=== PATIENT | male | born 1935 | race Caucasian/White ===

== ENCOUNTER 2016-04-05 19:31 | Inpatient (IN) | payer MEDICARE ==
[~2016-04-05] VITALS: Ht 182.9 cm; Wt 96.6 kg
[2016-04-05] MEDS: ASPIRIN 81 MG CHEW TAB PO SCH (11:55)
[~2016-04-05 19:31] MED LIST: ACETAMINOPHEN 325 MG TAB PO PRN; CEFAZOLIN 2,000 MG in SODIUM CHLORIDE 0.9% 100 ML IV ONE; PNEUMO VAC 25 MCG/0.5 ML VL IM.VACC ONE
[2016-04-05 19:35] VITALS: BP_SYST 110; RESP 20; TEMP 98.5
[2016-04-05] MEDS ORDERED: TUBERCULIN PPD 5 UNIT SYR ID.VACC ONE (21:00)
[2016-04-05] MEDS: SILVER SULF 1% CR 50 GM TOPICAL SCH (22:09)
[2016-04-05] MEDS: SERTRALINE 50 MG TAB PO SCH (22:10)
[2016-04-05] MEDS: METOPROLOL XL 100 MG TAB PO SCH (22:10)
[2016-04-05] MEDS: PRAVASTATIN 40 MG TAB PO SCH (22:10)
[2016-04-06] MEDS: SODIUM CHLORIDE 0.9% FLUSH BAG 500 ML IV SCH (06:00)
[2016-04-06 06:02] VITALS: BP_SYST 126; RESP 20; TEMP 98.4
[2016-04-06] MEDS: PANTOPRAZOLE 40 MG TAB PO SCH (06:08)
[2016-04-06] MEDS: ASPIRIN 81 MG CHEW TAB PO SCH (09:31)
[2016-04-06] MEDS: Furosemide 20 MG TAB PO SCH (09:32)
[2016-04-06] MEDS: NICOTINE 14 MG/24 HR TDSY TRANSDERM SCH (09:32)
[2016-04-06] MEDS: METOPROLOL XL 100 MG TAB PO SCH ×2 (09:32→20:15)
[2016-04-06] MEDS: SILVER SULF 1% CR 50 GM TOPICAL SCH ×2 (09:33→23:25)
[2016-04-06 09:44] VITALS: BP_SYST 111; RESP 18; TEMP 97.9
[2016-04-06 10:55] VITALS: Ht 182.9 cm; Wt 96.6 kg
[2016-04-06 16:04] VITALS: BP_SYST 103; RESP 18; TEMP 97.3
[2016-04-06] MEDS: SERTRALINE 50 MG TAB PO SCH (20:15)
[2016-04-06] MEDS: PRAVASTATIN 40 MG TAB PO SCH (20:15)
[2016-04-07 00:11] VITALS: BP_SYST 121; RESP 18; TEMP 97.7
[2016-04-07] MEDS: SODIUM CHLORIDE 0.9% FLUSH BAG 500 ML IV SCH (06:00)
[2016-04-07] MEDS: PANTOPRAZOLE 40 MG TAB PO SCH (06:22)
[2016-04-07] MEDS: NICOTINE 14 MG/24 HR TDSY TRANSDERM SCH (08:29)
[2016-04-07] MEDS: Furosemide 20 MG TAB PO SCH (08:30)
[2016-04-07] MEDS: ASPIRIN 81 MG CHEW TAB PO SCH (08:30)
[2016-04-07] MEDS: METOPROLOL XL 100 MG TAB PO SCH ×2 (08:30→21:04)
[2016-04-07] MEDS: SILVER SULF 1% CR 50 GM TOPICAL SCH ×2 (11:16→21:05)
[2016-04-07] MEDS: CEFAZOLIN 1,000 MG in DEXTROSE 5% 50 ML IV SCH ×2 (11:16→15:55)
[2016-04-07 13:00] VITALS: BP_SYST 130; RESP 18; TEMP 97.4
[2016-04-07 15:55] VITALS: BP_SYST 120; RESP 18; TEMP 97.3
[2016-04-07] MEDS: SKIN TEST: READ AND RECORD XX SCH (21:00)
[2016-04-07] MEDS: PRAVASTATIN 40 MG TAB PO SCH (21:04)
[2016-04-07] MEDS: SERTRALINE 50 MG TAB PO SCH (21:05)
[2016-04-08] MEDS: CEFAZOLIN 1,000 MG in DEXTROSE 5% 50 ML IV SCH ×4 (00:44→23:56)
[2016-04-08 01:43] VITALS: BP_SYST 117; RESP 18; TEMP 98.3
[2016-04-08 01:44] VITALS: TEMP 98.3
[2016-04-08] MEDS: SODIUM CHLORIDE 0.9% FLUSH BAG 500 ML IV SCH (06:08)
[2016-04-08] MEDS: PANTOPRAZOLE 40 MG TAB PO SCH (06:08)
[2016-04-08] MEDS: METOPROLOL XL 100 MG TAB PO SCH ×2 (08:24→21:01)
[2016-04-08] MEDS: ASPIRIN 81 MG CHEW TAB PO SCH (08:24)
[2016-04-08] MEDS: Furosemide 20 MG TAB PO SCH (08:24)
[2016-04-08] MEDS: NICOTINE 14 MG/24 HR TDSY TRANSDERM SCH (08:25)
[2016-04-08] MEDS: SILVER SULF 1% CR 50 GM TOPICAL SCH ×2 (08:26→22:15)
[2016-04-08 10:56] VITALS: BP_SYST 112; RESP 18; TEMP 98.2
[2016-04-08 15:27] VITALS: BP_SYST 133; RESP 18; TEMP 98.1
[2016-04-08] MEDS: PRAVASTATIN 40 MG TAB PO SCH (21:01)
[2016-04-08] MEDS: SERTRALINE 50 MG TAB PO SCH (21:01)
[2016-04-09 00:09] VITALS: BP_SYST 111; RESP 18; TEMP 98.5
[2016-04-09] MEDS: SODIUM CHLORIDE 0.9% FLUSH BAG 500 ML IV SCH (06:01)
[2016-04-09] MEDS: PANTOPRAZOLE 40 MG TAB PO SCH (06:02)
[2016-04-09] MEDS: CEFAZOLIN 1,000 MG in DEXTROSE 5% 50 ML IV SCH ×2 (08:58→16:46)
[2016-04-09] MEDS: ASPIRIN 81 MG CHEW TAB PO SCH (09:55)
[2016-04-09] MEDS: Furosemide 20 MG TAB PO SCH (09:55)
[2016-04-09] MEDS: NICOTINE 14 MG/24 HR TDSY TRANSDERM SCH (09:56)
[2016-04-09] MEDS: METOPROLOL XL 100 MG TAB PO SCH ×2 (09:58→21:25)
[2016-04-09] MEDS: SILVER SULF 1% CR 50 GM TOPICAL SCH ×2 (09:58→21:26)
[2016-04-09 11:34] VITALS: BP_SYST 111; RESP 16; TEMP 98.9
[2016-04-09 16:37] VITALS: BP_SYST 114; RESP 18; TEMP 98.1
[2016-04-09] MEDS: MICONAZOLE 2% PWD TOPICAL SCH (21:25)
[2016-04-09] MEDS: SERTRALINE 50 MG TAB PO SCH (21:25)
[2016-04-09] MEDS: PRAVASTATIN 40 MG TAB PO SCH (21:25)
[2016-04-10] MEDS: CEFAZOLIN 1,000 MG in DEXTROSE 5% 50 ML IV SCH ×3 (00:20→16:33)
[2016-04-10 02:04] VITALS: BP_SYST 141; RESP 18; TEMP 98.2
[2016-04-10 02:05] VITALS: TEMP 98.2
[2016-04-10] MEDS: PANTOPRAZOLE 40 MG TAB PO SCH (06:14)
[2016-04-10] MEDS: SODIUM CHLORIDE 0.9% FLUSH BAG 500 ML IV SCH (06:15)
[2016-04-10] MEDS: Furosemide 20 MG TAB PO SCH (09:23)
[2016-04-10] MEDS: METOPROLOL XL 100 MG TAB PO SCH ×2 (09:23→20:42)
[2016-04-10] MEDS: ASPIRIN 81 MG CHEW TAB PO SCH (09:23)
[2016-04-10] MEDS: NICOTINE 14 MG/24 HR TDSY TRANSDERM SCH (09:24)
[2016-04-10] MEDS: SILVER SULF 1% CR 50 GM TOPICAL SCH ×2 (09:24→21:00)
[2016-04-10] MEDS: MICONAZOLE 2% PWD TOPICAL SCH ×2 (09:25→20:43)
[2016-04-10 11:17] VITALS: BP_SYST 129; RESP 18; TEMP 97.5
[2016-04-10 15:41] VITALS: BP_SYST 109; RESP 18; TEMP 97.3
[2016-04-10] MEDS: PRAVASTATIN 40 MG TAB PO SCH (20:41)
[2016-04-10] MEDS: SERTRALINE 50 MG TAB PO SCH (20:41)
[2016-04-11] MEDS: CEFAZOLIN 1,000 MG in DEXTROSE 5% 50 ML IV SCH ×3 (00:10→15:53)
[2016-04-11 01:13] VITALS: BP_SYST 110; RESP 18; TEMP 98.3
[2016-04-11] MEDS: SODIUM CHLORIDE 0.9% FLUSH BAG 500 ML IV SCH (06:28)
[2016-04-11] MEDS: PANTOPRAZOLE 40 MG TAB PO SCH (06:28)
[2016-04-11] MEDS: ASPIRIN 81 MG CHEW TAB PO SCH (08:50)
[2016-04-11] MEDS: METOPROLOL XL 100 MG TAB PO SCH ×2 (08:50→21:12)
[2016-04-11] MEDS: Furosemide 20 MG TAB PO SCH (08:51)
[2016-04-11] MEDS: MICONAZOLE 2% PWD TOPICAL SCH ×2 (08:51→21:13)
[2016-04-11] MEDS: SILVER SULF 1% CR 50 GM TOPICAL SCH (08:52)
[2016-04-11] MEDS: NICOTINE 14 MG/24 HR TDSY TRANSDERM SCH (08:54)
[2016-04-11 10:25] VITALS: BP_SYST 128; RESP 18; TEMP 97.7
[2016-04-11 16:30] VITALS: BP_SYST 129; RESP 18; TEMP 98
[2016-04-11] MEDS ORDERED: MISSING DOSE XX ONE (19:35)
[2016-04-11] MEDS: PRAVASTATIN 40 MG TAB PO SCH (21:12)
[2016-04-11] MEDS: SERTRALINE 50 MG TAB PO SCH (21:12)
[2016-04-12 00:08] VITALS: BP_SYST 107; RESP 18; TEMP 98.3
[2016-04-12] MEDS: CEFAZOLIN 1,000 MG in DEXTROSE 5% 50 ML IV SCH ×3 (00:09→17:21)
[2016-04-12] MEDS: SILVER SULF 1% CR 50 GM TOPICAL SCH ×3 (00:12→21:08)
[2016-04-12] MEDS: SODIUM CHLORIDE 0.9% FLUSH BAG 500 ML IV SCH (05:49)
[2016-04-12] MEDS: PANTOPRAZOLE 40 MG TAB PO SCH (05:53)
[2016-04-12 10:35] VITALS: BP_SYST 132; TEMP 97.8
[2016-04-12] MEDS: Furosemide 20 MG TAB PO SCH (10:55)
[2016-04-12] MEDS: ASPIRIN 81 MG CHEW TAB PO SCH (10:55)
[2016-04-12] MEDS: METOPROLOL XL 100 MG TAB PO SCH ×2 (10:56→21:07)
[2016-04-12] MEDS: MICONAZOLE 2% PWD TOPICAL SCH ×2 (10:56→21:08)
[2016-04-12] MEDS: NICOTINE 14 MG/24 HR TDSY TRANSDERM SCH (10:57)
[2016-04-12 16:51] VITALS: BP_SYST 121
[2016-04-12 16:52] VITALS: BP_SYST 121; RESP 18; TEMP 98
[2016-04-12] MEDS ORDERED: TUBERCULIN PPD 5 UNIT SYR ID.VACC ONE (21:00)
[2016-04-12] MEDS: APIXABAN 2.5 MG TAB PO SCH (21:07)
[2016-04-12] MEDS: PRAVASTATIN 40 MG TAB PO SCH (21:07)
[2016-04-12] MEDS: SERTRALINE 50 MG TAB PO SCH (21:08)
[2016-04-13] MEDS: CEFAZOLIN 1,000 MG in DEXTROSE 5% 50 ML IV SCH ×3 (00:16→18:13)
[2016-04-13 00:21] VITALS: BP_SYST 105; RESP 18; TEMP 98.5
[2016-04-13] MEDS: PANTOPRAZOLE 40 MG TAB PO SCH (06:22)
[2016-04-13] MEDS: SODIUM CHLORIDE 0.9% FLUSH BAG 500 ML IV SCH (06:22)
[2016-04-13] MEDS: Furosemide 20 MG TAB PO SCH (08:02)
[2016-04-13] MEDS: APIXABAN 2.5 MG TAB PO SCH ×2 (08:02→20:00)
[2016-04-13] MEDS: METOPROLOL XL 100 MG TAB PO SCH ×2 (08:02→20:01)
[2016-04-13] MEDS: ASPIRIN 81 MG CHEW TAB PO SCH (08:02)
[2016-04-13] MEDS: NICOTINE 14 MG/24 HR TDSY TRANSDERM SCH (08:03)
[2016-04-13] MEDS: SILVER SULF 1% CR 50 GM TOPICAL SCH ×2 (08:04→20:01)
[2016-04-13] MEDS: MICONAZOLE 2% PWD TOPICAL SCH ×2 (08:05→20:01)
[2016-04-13 11:14] VITALS: BP_SYST 102; RESP 20; TEMP 97.5
[2016-04-13 16:09] VITALS: BP_SYST 118; RESP 20; TEMP 97.8
[2016-04-13] MEDS: COLLAGENASE OINT 30 GM TOPICAL SCH (18:18)
[2016-04-13] MEDS: PRAVASTATIN 40 MG TAB PO SCH (20:00)
[2016-04-13] MEDS: SERTRALINE 50 MG TAB PO SCH (20:01)
[2016-04-14] MEDS: CEFAZOLIN 1,000 MG in DEXTROSE 5% 50 ML IV SCH ×3 (00:10→16:06)
[2016-04-14 00:14] VITALS: BP_SYST 112; RESP 18; TEMP 98
[2016-04-14] MEDS: SODIUM CHLORIDE 0.9% FLUSH BAG 500 ML IV SCH ×2 (06:24→09:08)
[2016-04-14] MEDS: PANTOPRAZOLE 40 MG TAB PO SCH (06:24)
[2016-04-14] MEDS: SILVER SULF 1% CR 50 GM TOPICAL SCH ×2 (09:00→09:06)
[2016-04-14] MEDS: APIXABAN 2.5 MG TAB PO SCH ×2 (09:01→21:11)
[2016-04-14] MEDS: METOPROLOL XL 100 MG TAB PO SCH ×2 (09:01→21:11)
[2016-04-14] MEDS: ASPIRIN 81 MG CHEW TAB PO SCH (09:02)
[2016-04-14] MEDS: Furosemide 20 MG TAB PO SCH (09:02)
[2016-04-14] MEDS: NICOTINE 14 MG/24 HR TDSY TRANSDERM SCH (09:03)
[2016-04-14] MEDS: COLLAGENASE OINT 30 GM TOPICAL SCH (09:07)
[2016-04-14] MEDS: MICONAZOLE 2% PWD TOPICAL SCH ×2 (09:07→21:11)
[2016-04-14 11:44] VITALS: BP_SYST 105; RESP 20; TEMP 98.2
[2016-04-14 17:16] VITALS: BP_SYST 117; TEMP 98.2
[2016-04-14] MEDS: PRAVASTATIN 40 MG TAB PO SCH (21:11)
[2016-04-14] MEDS: SERTRALINE 50 MG TAB PO SCH (21:11)
[2016-04-14] MEDS: SKIN TEST: READ AND RECORD XX SCH (21:12)
[2016-04-15] MEDS: CEFAZOLIN 1,000 MG in DEXTROSE 5% 50 ML IV SCH ×3 (00:48→15:38)
[2016-04-15 01:07] VITALS: BP_SYST 107; TEMP 98.4
[2016-04-15 01:08] VITALS: RESP 18
[2016-04-15] MEDS: PANTOPRAZOLE 40 MG TAB PO SCH (05:45)
[2016-04-15] MEDS: SILVER SULF 1% CR 50 GM TOPICAL SCH ×3 (05:47→20:57)
[2016-04-15] MEDS: METOPROLOL XL 100 MG TAB PO SCH ×2 (08:55→20:56)
[2016-04-15] MEDS: Furosemide 20 MG TAB PO SCH (08:55)
[2016-04-15] MEDS: APIXABAN 2.5 MG TAB PO SCH ×2 (08:55→20:56)
[2016-04-15] MEDS: ASPIRIN 81 MG CHEW TAB PO SCH (08:55)
[2016-04-15] MEDS: NICOTINE 14 MG/24 HR TDSY TRANSDERM SCH (08:56)
[2016-04-15] MEDS: MICONAZOLE 2% PWD TOPICAL SCH ×2 (08:57→20:56)
[2016-04-15 11:08] VITALS: BP_SYST 109; RESP 18; TEMP 98
[2016-04-15] MEDS ORDERED: MISSING DOSE XX ONE (14:40)
[2016-04-15] MEDS: COLLAGENASE OINT 30 GM TOPICAL SCH (15:37)
[2016-04-15 16:36] VITALS: BP_SYST 113; RESP 18; TEMP 98
[2016-04-15] MEDS: PRAVASTATIN 40 MG TAB PO SCH (20:56)
[2016-04-15] MEDS: SERTRALINE 50 MG TAB PO SCH (20:56)
[2016-04-16] MEDS: CEFAZOLIN 1,000 MG in DEXTROSE 5% 50 ML IV SCH ×3 (00:12→16:13)
[2016-04-16 00:20] VITALS: BP_SYST 101; RESP 18; TEMP 97.9
[2016-04-16] MEDS: SODIUM CHLORIDE 0.9% FLUSH BAG 500 ML IV SCH (06:22)
[2016-04-16] MEDS: PANTOPRAZOLE 40 MG TAB PO SCH (06:22)
[2016-04-16] MEDS: METOPROLOL XL 100 MG TAB PO SCH ×2 (08:43→20:28)
[2016-04-16] MEDS: ASPIRIN 81 MG CHEW TAB PO SCH (08:43)
[2016-04-16] MEDS: APIXABAN 2.5 MG TAB PO SCH ×2 (08:43→20:28)
[2016-04-16] MEDS: Furosemide 20 MG TAB PO SCH (08:43)
[2016-04-16] MEDS: COLLAGENASE OINT 30 GM TOPICAL SCH (08:44)
[2016-04-16] MEDS: SILVER SULF 1% CR 50 GM TOPICAL SCH ×2 (08:44→20:29)
[2016-04-16] MEDS: MICONAZOLE 2% PWD TOPICAL SCH ×2 (08:44→20:29)
[2016-04-16] MEDS: NICOTINE 14 MG/24 HR TDSY TRANSDERM SCH (08:45)
[2016-04-16 09:26] VITALS: BP_SYST 108; RESP 18; TEMP 98.3
[2016-04-16 15:27] VITALS: BP_SYST 110; RESP 18; TEMP 97.4
[2016-04-16] MEDS: SERTRALINE 50 MG TAB PO SCH (20:28)
[2016-04-16] MEDS: PRAVASTATIN 40 MG TAB PO SCH (20:28)
[2016-04-17] MEDS: CEFAZOLIN 1,000 MG in DEXTROSE 5% 50 ML IV SCH ×4 (00:07→23:37)
[2016-04-17 00:11] VITALS: BP_SYST 114; RESP 18; TEMP 98.2
[2016-04-17] MEDS: PANTOPRAZOLE 40 MG TAB PO SCH (06:23)
[2016-04-17] MEDS: SODIUM CHLORIDE 0.9% FLUSH BAG 500 ML IV SCH (06:23)
[2016-04-17] MEDS: COLLAGENASE OINT 30 GM TOPICAL SCH (09:55)
[2016-04-17] MEDS: APIXABAN 2.5 MG TAB PO SCH ×2 (09:55→21:27)
[2016-04-17] MEDS: SILVER SULF 1% CR 50 GM TOPICAL SCH ×2 (09:55→21:00)
[2016-04-17] MEDS: MICONAZOLE 2% PWD TOPICAL SCH ×2 (09:55→21:29)
[2016-04-17] MEDS: METOPROLOL XL 100 MG TAB PO SCH ×2 (09:56→21:27)
[2016-04-17] MEDS: ASPIRIN 81 MG CHEW TAB PO SCH (09:56)
[2016-04-17] MEDS: NICOTINE 14 MG/24 HR TDSY TRANSDERM SCH (09:56)
[2016-04-17] MEDS: Furosemide 20 MG TAB PO SCH (09:56)
[2016-04-17 10:11] VITALS: BP_SYST 111; RESP 18; TEMP 97.8
[2016-04-17 15:30] VITALS: BP_SYST 111; RESP 20; TEMP 97.9
[2016-04-17] MEDS ORDERED: MISSING DOSE XX ONE (19:50)
[2016-04-17] MEDS: SERTRALINE 50 MG TAB PO SCH (21:27)
[2016-04-17] MEDS: PRAVASTATIN 40 MG TAB PO SCH (21:27)
[2016-04-18 02:41] VITALS: BP_SYST 110; RESP 18; TEMP 97.8
[2016-04-18] MEDS: PANTOPRAZOLE 40 MG TAB PO SCH (06:26)
[2016-04-18] MEDS: SODIUM CHLORIDE 0.9% FLUSH BAG 500 ML IV SCH (06:27)
[2016-04-18] MEDS: CEFAZOLIN 1,000 MG in DEXTROSE 5% 50 ML IV SCH ×2 (08:04→15:20)
[2016-04-18] MEDS: APIXABAN 2.5 MG TAB PO SCH ×2 (08:48→20:35)
[2016-04-18] MEDS: ASPIRIN 81 MG CHEW TAB PO SCH (08:48)
[2016-04-18] MEDS: METOPROLOL XL 100 MG TAB PO SCH ×2 (08:48→20:35)
[2016-04-18] MEDS: Furosemide 20 MG TAB PO SCH (08:48)
[2016-04-18] MEDS: NICOTINE 14 MG/24 HR TDSY TRANSDERM SCH (08:51)
[2016-04-18] MEDS: SILVER SULF 1% CR 50 GM TOPICAL SCH ×2 (08:51→20:37)
[2016-04-18] MEDS: MICONAZOLE 2% PWD TOPICAL SCH ×2 (08:51→20:37)
[2016-04-18] MEDS: COLLAGENASE OINT 30 GM TOPICAL SCH (08:54)
[2016-04-18 10:20] VITALS: BP_SYST 105; RESP 18; TEMP 97.6
[2016-04-18 15:59] VITALS: BP_SYST 105; RESP 18; TEMP 97.8
[2016-04-18] MEDS: PRAVASTATIN 40 MG TAB PO SCH (20:35)
[2016-04-18] MEDS: SERTRALINE 50 MG TAB PO SCH (20:35)
[2016-04-19] MEDS: CEFAZOLIN 1,000 MG in DEXTROSE 5% 50 ML IV SCH ×2 (00:36→09:04)
[2016-04-19 01:20] VITALS: BP_SYST 103; RESP 18; TEMP 98
[2016-04-19 01:21] VITALS: TEMP 98
[2016-04-19] MEDS: PANTOPRAZOLE 40 MG TAB PO SCH (06:32)
[2016-04-19] MEDS: SODIUM CHLORIDE 0.9% FLUSH BAG 500 ML IV SCH (06:33)
[2016-04-19] MEDS: APIXABAN 2.5 MG TAB PO SCH ×2 (09:09→22:22)
[2016-04-19] MEDS: NICOTINE 14 MG/24 HR TDSY TRANSDERM SCH (09:09)
[2016-04-19] MEDS: METOPROLOL XL 100 MG TAB PO SCH ×2 (09:09→22:23)
[2016-04-19] MEDS: Furosemide 20 MG TAB PO SCH (09:10)
[2016-04-19] MEDS: ASPIRIN 81 MG CHEW TAB PO SCH (09:10)
[2016-04-19] MEDS: MICONAZOLE 2% PWD TOPICAL SCH ×2 (09:11→22:23)
[2016-04-19 10:27] VITALS: BP_SYST 107; RESP 18; TEMP 98.4
[2016-04-19] MEDS: SILVER SULF 1% CR 50 GM TOPICAL SCH (14:00)
[2016-04-19] MEDS: COLLAGENASE OINT 30 GM TOPICAL SCH (14:01)
[2016-04-19] MEDS: CEFAZOLIN 2,000 MG in SODIUM CHLORIDE 0.9% 100 ML IV SCH (16:00)
[2016-04-19 16:09] VITALS: BP_SYST 107; TEMP 98.3
[2016-04-19] MEDS: PRAVASTATIN 40 MG TAB PO SCH (22:22)
[2016-04-19] MEDS: SERTRALINE 50 MG TAB PO SCH (22:23)
[2016-04-20] MEDS: CEFAZOLIN 2,000 MG in SODIUM CHLORIDE 0.9% 100 ML IV SCH ×3 (00:15→17:16)
[2016-04-20 01:36] VITALS: BP_SYST 113; RESP 18; TEMP 98.7
[2016-04-20] MEDS: SILVER SULF 1% CR 50 GM TOPICAL SCH ×3 (04:00→20:48)
[2016-04-20] MEDS: SODIUM CHLORIDE 0.9% FLUSH BAG 500 ML IV SCH (06:26)
[2016-04-20] MEDS: PANTOPRAZOLE 40 MG TAB PO SCH (06:26)
[2016-04-20] MEDS: NICOTINE 14 MG/24 HR TDSY TRANSDERM SCH (08:34)
[2016-04-20] MEDS: APIXABAN 2.5 MG TAB PO SCH ×2 (08:35→20:47)
[2016-04-20] MEDS: METOPROLOL XL 100 MG TAB PO SCH ×2 (08:35→20:47)
[2016-04-20] MEDS: ASPIRIN 81 MG CHEW TAB PO SCH (08:35)
[2016-04-20] MEDS: MICONAZOLE 2% PWD TOPICAL SCH ×2 (08:35→20:48)
[2016-04-20] MEDS: Furosemide 20 MG TAB PO SCH (08:36)
[2016-04-20 11:11] VITALS: BP_SYST 110; RESP 20; TEMP 99
[2016-04-20] MEDS: COLLAGENASE OINT 30 GM TOPICAL SCH (14:30)
[2016-04-20] MEDS: BACITRACIN OINT TOPICAL SCH (14:31)
[2016-04-20 16:35] VITALS: BP_SYST 110; RESP 20; TEMP 97.2
[2016-04-20] MEDS: PRAVASTATIN 40 MG TAB PO SCH (20:47)
[2016-04-20] MEDS: SERTRALINE 50 MG TAB PO SCH (20:47)
[2016-04-21] MEDS: CEFAZOLIN 2,000 MG in SODIUM CHLORIDE 0.9% 100 ML IV SCH ×4 (00:33→23:14)
[2016-04-21 03:52] VITALS: BP_SYST 116; TEMP 97.5
[2016-04-21 03:53] VITALS: TEMP 97.5
[2016-04-21] MEDS: PANTOPRAZOLE 40 MG TAB PO SCH (05:59)
[2016-04-21] MEDS: SODIUM CHLORIDE 0.9% FLUSH BAG 500 ML IV SCH (05:59)
[2016-04-21] MEDS: APIXABAN 2.5 MG TAB PO SCH ×2 (09:01→20:47)
[2016-04-21] MEDS: ASPIRIN 81 MG CHEW TAB PO SCH (09:01)
[2016-04-21] MEDS: Furosemide 20 MG TAB PO SCH (09:01)
[2016-04-21] MEDS: BACITRACIN OINT TOPICAL SCH (09:01)
[2016-04-21] MEDS: MICONAZOLE 2% PWD TOPICAL SCH ×2 (09:01→20:48)
[2016-04-21] MEDS: METOPROLOL XL 100 MG TAB PO SCH ×2 (09:01→20:48)
[2016-04-21] MEDS: COLLAGENASE OINT 30 GM TOPICAL SCH (09:02)
[2016-04-21] MEDS: SILVER SULF 1% CR 50 GM TOPICAL SCH ×2 (09:02→20:48)
[2016-04-21] MEDS: NICOTINE 14 MG/24 HR TDSY TRANSDERM SCH (09:02)
[2016-04-21 11:06] VITALS: BP_SYST 126; RESP 18; TEMP 98.7
[2016-04-21 20:08] VITALS: BP_SYST 115; RESP 18; TEMP 98.3
[2016-04-21] MEDS: PRAVASTATIN 40 MG TAB PO SCH (20:47)
[2016-04-21] MEDS: SERTRALINE 50 MG TAB PO SCH (20:47)
[2016-04-21 23:54] VITALS: BP_SYST 120; RESP 20; TEMP 98.4
[2016-04-22] MEDS: PANTOPRAZOLE 40 MG TAB PO SCH (05:54)
[2016-04-22] MEDS: SODIUM CHLORIDE 0.9% FLUSH BAG 500 ML IV SCH (05:55)
[2016-04-22] MEDS: METOPROLOL XL 100 MG TAB PO SCH ×2 (08:21→20:50)
[2016-04-22] MEDS: NICOTINE 14 MG/24 HR TDSY TRANSDERM SCH (08:21)
[2016-04-22] MEDS: CEFAZOLIN 2,000 MG in SODIUM CHLORIDE 0.9% 100 ML IV SCH ×3 (08:21→23:26)
[2016-04-22] MEDS: APIXABAN 2.5 MG TAB PO SCH ×2 (08:21→20:50)
[2016-04-22] MEDS: Furosemide 20 MG TAB PO SCH (08:22)
[2016-04-22] MEDS: MICONAZOLE 2% PWD TOPICAL SCH ×2 (08:22→20:50)
[2016-04-22] MEDS: COLLAGENASE OINT 30 GM TOPICAL SCH (08:22)
[2016-04-22] MEDS: ASPIRIN 81 MG CHEW TAB PO SCH (08:22)
[2016-04-22] MEDS: BACITRACIN OINT TOPICAL SCH (08:23)
[2016-04-22] MEDS: SILVER SULF 1% CR 50 GM TOPICAL SCH ×2 (08:23→20:51)
[2016-04-22 09:21] VITALS: BP_SYST 107; RESP 20; TEMP 97.8
[2016-04-22 09:22] VITALS: RESP 20; TEMP 97.8
[2016-04-22 16:21] VITALS: BP_SYST 109; RESP 20; TEMP 97.9
[2016-04-22] MEDS: PRAVASTATIN 40 MG TAB PO SCH (20:50)
[2016-04-22] MEDS: SERTRALINE 50 MG TAB PO SCH (20:50)
[2016-04-23 00:39] VITALS: BP_SYST 116; RESP 18; TEMP 98.3
[2016-04-23] MEDS: PANTOPRAZOLE 40 MG TAB PO SCH (05:51)
[2016-04-23] MEDS: SODIUM CHLORIDE 0.9% FLUSH BAG 500 ML IV SCH (06:42)
[2016-04-23] MEDS: CEFAZOLIN 2,000 MG in SODIUM CHLORIDE 0.9% 100 ML IV SCH (08:59)
[2016-04-23] MEDS: METOPROLOL XL 100 MG TAB PO SCH (09:01)
[2016-04-23] MEDS: APIXABAN 2.5 MG TAB PO SCH (09:01)
[2016-04-23] MEDS: Furosemide 20 MG TAB PO SCH (09:01)
[2016-04-23] MEDS: ASPIRIN 81 MG CHEW TAB PO SCH (09:01)
[2016-04-23] MEDS: MICONAZOLE 2% PWD TOPICAL SCH (09:02)
[2016-04-23] MEDS: NICOTINE 14 MG/24 HR TDSY TRANSDERM SCH (09:04)
[2016-04-23 10:00] VITALS: BP_SYST 115; RESP 20; TEMP 97.8
[2016-04-23] MEDS: SILVER SULF 1% CR 50 GM TOPICAL SCH (10:00)
[2016-04-23] MEDS: COLLAGENASE OINT 30 GM TOPICAL SCH (10:01)
[2016-04-23] MEDS: BACITRACIN OINT TOPICAL SCH (10:01)
[2016-04-23 10:14] VITALS: BP_SYST 115; RESP 20; TEMP 97.8
== END 2016-04-23 13:10 | disposition home health service (06) | DRG 556 ==
LOC: NF 19:31
PROVIDERS: ADMIT Family Medicine; ATTEND Family Medicine
DX: R26.2 Difficulty in walking, not elsewhere classified (principal); I13.0 Hypertensive heart and chronic kidney disease with heart failure and stage 1 through stage 4 chronic kidney disease, or unspecified chronic kidney disease; I50.22 Chronic systolic (congestive) heart failure; M86.9 Osteomyelitis, unspecified; N18.3 Chronic kidney disease, stage 3 (moderate); B95.61 Methicillin susceptible Staphylococcus aureus infection as the cause of diseases classified elsewhere; I73.9 Peripheral vascular disease, unspecified; I48.91 Unspecified atrial fibrillation; E78.5 Hyperlipidemia, unspecified; Z72.0 Tobacco use
CPT/HCPCS: 36415; 80048; 82947; 86580; 99306; 99308; 99309; 99316

== ENCOUNTER 2016-05-06 19:42 | Inpatient (IN) | payer MEDICARE ==
[2016-05-06] MEDS ORDERED: Atorvastatin 20 MG TAB PO SCH (21:00)
[2016-05-06] MEDS ORDERED: SALINE FLUSH 10 ML FLUSH PRN (22:25)
[2016-05-06] MEDS ORDERED: ACETAMINOPHEN 325 MG TAB PO PRN (22:25)
[2016-05-06 23:59] VITALS: BP_SYST 128; RESP 16; RESP 18; TEMP 98.5
[2016-05-07] VITALS (8 sets, daily range): BP systolic 104–124; RESP 14–18; TEMP 97.3–98.7
[2016-05-07] MEDS: CEFAZOLIN 2,000 MG in SODIUM CHLORIDE 0.9% 100 ML IV SCH ×3 (01:31→16:03)
[2016-05-07] MEDS: SODIUM CHLORIDE 0.9% FLUSH BAG 500 ML IV SCH ×2 (01:31→23:49)
[2016-05-07] MEDS ORDERED: CEFAZOLIN 1,000 MG VIAL IV SCH (08:00)
[2016-05-07] MEDS: Aspirin 325 MG TAB PO SCH (08:43)
[2016-05-07] MEDS: SALINE FLUSH 10 ML FLUSH SCH ×2 (08:43→20:00)
[2016-05-07] MEDS: APIXABAN 2.5 MG TAB PO SCH ×2 (08:43→21:18)
[2016-05-07] MEDS: Furosemide 40 MG TAB PO SCH (08:43)
[2016-05-07] MEDS: COLLAGENASE OINT 30 GM TOPICAL SCH (08:44)
[2016-05-07] MEDS: SILVER SULF 1% CR 50 GM TOPICAL SCH (08:44)
[2016-05-07] MEDS ORDERED: ASPIRIN 81 MG CHEW TAB PO SCH (09:00)
[2016-05-07] MEDS ORDERED: MISSING DOSE XX ONE (14:30)
[2016-05-07] MEDS: DUONEB INH PRN ×3 (14:35→22:07)
[2016-05-07] MEDS: PANTOPRAZOLE 40 MG TAB PO SCH (15:03)
[2016-05-07] MEDS: SODIUM CHLOR 0.9% W/KCL 20MEQ 1,000 ML IV SCH (15:48)
[2016-05-07] MEDS ORDERED: NALOXONE 0.4 MG/ML AMP IV ONE (16:25)
[2016-05-07] MEDS: PRAVASTATIN 40 MG TAB PO SCH (21:18)
[2016-05-07] MEDS: CYANOCOBALAMIN 1000 MCG/ML VIAL IM SCH (21:19)
[2016-05-08] MEDS ORDERED: CEFAZOLIN 2,000 MG in SODIUM CHLORIDE 0.9% 100 ML IV SCH ×2
[2016-05-08 04:09] VITALS: BP_SYST 110; RESP 18; TEMP 97.5
[2016-05-08] MEDS: PANTOPRAZOLE 40 MG TAB PO SCH (06:02)
[2016-05-08] MEDS: SODIUM CHLOR 0.9% W/KCL 20MEQ 1,000 ML IV SCH (06:09)
[2016-05-08] MEDS: SALINE FLUSH 10 ML FLUSH SCH ×2 (07:07→20:26)
[2016-05-08 07:20] VITALS: BP_SYST 119; RESP 18; TEMP 97.3
[2016-05-08] MEDS: Furosemide 40 MG TAB PO SCH (08:56)
[2016-05-08] MEDS: APIXABAN 2.5 MG TAB PO SCH ×2 (08:56→20:26)
[2016-05-08] MEDS: Aspirin 325 MG TAB PO SCH (08:56)
[2016-05-08] MEDS: SILVER SULF 1% CR 50 GM TOPICAL SCH (08:56)
[2016-05-08] MEDS: COLLAGENASE OINT 30 GM TOPICAL SCH (08:56)
[2016-05-08] MEDS: CYANOCOBALAMIN 1000 MCG/ML VIAL IM SCH (08:57)
[2016-05-08] MEDS: DUONEB INH PRN ×4 (10:36→22:56)
[2016-05-08 12:19] VITALS: BP_SYST 113; RESP 17; TEMP 97.6
[2016-05-08 17:19] VITALS: BP_SYST 102; RESP 18; TEMP 97.7
[2016-05-08 19:53] VITALS: BP_SYST 115; RESP 20; TEMP 97.8
[2016-05-08] MEDS ORDERED: MISSING DOSE XX ONE (20:05)
[2016-05-08] MEDS: METOPROLOL XL 25 MG TAB PO SCH (20:26)
[2016-05-08] MEDS: PRAVASTATIN 40 MG TAB PO SCH (20:29)
[2016-05-08] MEDS: SODIUM CHLORIDE 0.9% FLUSH BAG 500 ML IV SCH (20:31)
[2016-05-08 23:28] VITALS: BP_SYST 108; RESP 20; TEMP 97.9
[2016-05-09] VITALS (39 sets, daily range): BP systolic 91–165; RESP 16–20; TEMP 97.9–99
[2016-05-09] MEDS ORDERED: AMIODARONE 150 MG in DEXTROSE 5% 100 ML IV ONE (02:05)
[2016-05-09] MEDS: AMIODARONE 450 MG in DEXTROSE 5% AVIVA 250 ML IV SCH ×2 (02:48→13:22)
[2016-05-09] MEDS: SODIUM CHLORIDE 0.9% FLUSH BAG 500 ML IV SCH (02:49)
[2016-05-09] MEDS: PANTOPRAZOLE 40 MG TAB PO SCH (06:26)
[2016-05-09] MEDS: DUONEB INH PRN ×5 (06:39→22:45)
[2016-05-09] MEDS: SALINE FLUSH 10 ML FLUSH SCH ×2 (08:00→20:00)
[2016-05-09] MEDS ORDERED: MISSING DOSE XX ONE ×2 (08:50→12:45)
[2016-05-09] MEDS: APIXABAN 2.5 MG TAB PO SCH ×2 (08:52→22:17)
[2016-05-09] MEDS: COLLAGENASE OINT 30 GM TOPICAL SCH (08:53)
[2016-05-09] MEDS: CYANOCOBALAMIN 1000 MCG/ML VIAL IM SCH (08:53)
[2016-05-09] MEDS: SILVER SULF 1% CR 50 GM TOPICAL SCH (08:54)
[2016-05-09] MEDS: Aspirin 325 MG TAB PO SCH (09:00)
[2016-05-09] MEDS: METOPROLOL XL 25 MG TAB PO SCH (09:17)
[2016-05-09] MEDS: Furosemide 40 MG TAB PO SCH (09:18)
[2016-05-09] MEDS: ASPIRIN EC 81 MG TAB PO SCH (12:01)
[2016-05-09] MEDS ORDERED: METOPROLOL XL 25 MG TAB PO SCH (21:00)
[2016-05-09] MEDS: PRAVASTATIN 40 MG TAB PO SCH (22:17)
[2016-05-10] VITALS (11 sets, daily range): BP systolic 110–131; RESP 18; TEMP 97.6–98.9
[2016-05-10] MEDS: SODIUM CHLORIDE 0.9% FLUSH BAG 500 ML IV SCH ×2 (04:12→20:27)
[2016-05-10] MEDS: PANTOPRAZOLE 40 MG TAB PO SCH (06:28)
[2016-05-10] MEDS: DUONEB INH PRN ×3 (06:29→14:08)
[2016-05-10] MEDS: SALINE FLUSH 10 ML FLUSH SCH ×2 (10:11→20:25)
[2016-05-10] MEDS: CYANOCOBALAMIN 1000 MCG/ML VIAL IM SCH (10:11)
[2016-05-10] MEDS: APIXABAN 2.5 MG TAB PO SCH ×2 (10:11→20:25)
[2016-05-10] MEDS: SILVER SULF 1% CR 50 GM TOPICAL SCH ×2 (10:12→20:25)
[2016-05-10] MEDS: Furosemide 40 MG TAB PO SCH (10:12)
[2016-05-10] MEDS: DILTIAZEM CD 120 MG CAP PO SCH (10:12)
[2016-05-10] MEDS: COLLAGENASE OINT 30 GM TOPICAL SCH ×2 (10:13→20:25)
[2016-05-10] MEDS: ASPIRIN EC 81 MG TAB PO SCH (10:53)
[2016-05-10] MEDS: METOPROLOL XL 50 MG TAB PO SCH ×2 (10:53→20:26)
[2016-05-10] MEDS: PRAVASTATIN 40 MG TAB PO SCH (20:24)
[2016-05-11] VITALS (7 sets, daily range): BP systolic 93–123; RESP 18–20; TEMP 97.6–98.5
[2016-05-11] MEDS: DUONEB INH PRN ×5 (06:29→22:33)
[2016-05-11] MEDS: PANTOPRAZOLE 40 MG TAB PO SCH (06:44)
[2016-05-11] MEDS ORDERED: MISSING DOSE XX ONE (09:10)
[2016-05-11] MEDS: Furosemide 40 MG TAB PO SCH (09:13)
[2016-05-11] MEDS: SALINE FLUSH 10 ML FLUSH SCH ×2 (09:13→20:37)
[2016-05-11] MEDS: CYANOCOBALAMIN 1000 MCG/ML VIAL IM SCH (09:13)
[2016-05-11] MEDS: ASPIRIN EC 81 MG TAB PO SCH (09:14)
[2016-05-11] MEDS: LISINOPRIL 5 MG TAB PO SCH (09:14)
[2016-05-11] MEDS: APIXABAN 2.5 MG TAB PO SCH ×2 (09:14→20:37)
[2016-05-11] MEDS: DILTIAZEM CD 120 MG CAP PO SCH (09:14)
[2016-05-11] MEDS: METOPROLOL XL 50 MG TAB PO SCH ×2 (09:53→20:37)
[2016-05-11] MEDS: PRAVASTATIN 40 MG TAB PO SCH (20:37)
[2016-05-11] MEDS: SODIUM CHLORIDE 0.9% FLUSH BAG 500 ML IV SCH (23:06)
[2016-05-12] MEDS ORDERED: SODIUM CHLORIDE 0.9% FLUSH BAG 500 ML IV SCH (06:00)
[2016-05-12] MEDS: PANTOPRAZOLE 40 MG TAB PO SCH (06:12)
[2016-05-12] MEDS: DUONEB INH PRN ×3 (06:19→15:10)
[2016-05-12 08:00] VITALS: BP_SYST 106; RESP 18; TEMP 97.6
[2016-05-12] MEDS: CYANOCOBALAMIN 1000 MCG/ML VIAL IM SCH (08:32)
[2016-05-12] MEDS: DILTIAZEM CD 120 MG CAP PO SCH (08:32)
[2016-05-12] MEDS: LISINOPRIL 5 MG TAB PO SCH (08:33)
[2016-05-12] MEDS: Furosemide 40 MG TAB PO SCH (08:33)
[2016-05-12] MEDS: APIXABAN 2.5 MG TAB PO SCH (08:33)
[2016-05-12] MEDS: METOPROLOL XL 50 MG TAB PO SCH (08:33)
[2016-05-12] MEDS: ASPIRIN EC 81 MG TAB PO SCH (08:33)
[2016-05-12] MEDS: SILVER SULF 1% CR 50 GM TOPICAL SCH (08:34)
[2016-05-12] MEDS: COLLAGENASE OINT 30 GM TOPICAL SCH (08:34)
[2016-05-12] MEDS: SALINE FLUSH 10 ML FLUSH SCH (08:35)
[2016-05-12 12:04] VITALS: BP_SYST 110; RESP 18; TEMP 97.8
[2016-05-12 14:24] VITALS: BP_SYST 110; RESP 18; TEMP 97.8
[2016-05-12 15:34] VITALS: BP_SYST 110; RESP 18; TEMP 97.8
[2016-05-14] MEDS ORDERED: CYANOCOBALAMIN 1000 MCG/ML VIAL IM SCH (09:00)
[2016-05-20] MEDS ORDERED: CYANOCOBALAMIN 1000 MCG/ML VIAL IM SCH (09:00)
== END 2016-05-12 15:58 | disposition home health service (06) | DRG 92 ==
LOC: ENRESERVTM → ENRESERVDT → ER 19:42 → EMR 22:21 → ENPENDDIS 22:21 → PCU 23:28
PROVIDERS: ADMIT Internal Medicine; ATTEND Internal Medicine
DX: G92 Toxic encephalopathy (principal); M86.9 Osteomyelitis, unspecified; I42.0 Dilated cardiomyopathy; F03.90 Unspecified dementia, unspecified severity, without behavioral disturbance, psychotic disturbance, mood disturbance, and anxiety; I13.0 Hypertensive heart and chronic kidney disease with heart failure and stage 1 through stage 4 chronic kidney disease, or unspecified chronic kidney disease; I50.22 Chronic systolic (congestive) heart failure; I48.2 Chronic atrial fibrillation; N18.3 Chronic kidney disease, stage 3 (moderate); E78.5 Hyperlipidemia, unspecified; I73.9 Peripheral vascular disease, unspecified; Z79.82 Long term (current) use of aspirin; Z86.73 Personal history of transient ischemic attack (TIA), and cerebral infarction without residual deficits; F17.290 Nicotine dependence, other tobacco product, uncomplicated; Z81.1 Family history of alcohol abuse and dependence
CPT/HCPCS: 36415; 36600; 70450; 70551; 71010; 80048; 80053; 80061; 80307; 81001; 82140; 82607; 82746; 82803; 82947; 84439; 84443; 84484; 85025; 85610; 85730; 87088; 93005; 93880; 94640; 94799; 99232; 99233; 99239